=== PATIENT | male | born 1975 | race Caucasian/White ===

== ENCOUNTER 2016-07-27 13:36 | Emergency (ER) | payer OTHER ==
[2016-07-27 14:02] VITALS: BP 148/115; PULSE 85; RESP 18; TEMP 98.1; O2SAT 95
--- NOTE | 2016-07-27 15:01 | EDPHY ---
H & P Time Seen by Provider: 07/27/16 14:58 HPI/ROS: HPI: 41-year-old gentleman presents to emergency department with chief concern left lower tooth pain. Tooth been hurting him for months. Pain is 6/10. Pain onset after he cracked his tooth. Denies fever, chills, myalgias, dizziness, headache, discharge from his mouth, difficulty chewing or swallowing, nausea vomiting. He is from [place]. He is transient. Past medical history includes kidney stones and schizophrenia. ROS:10 point review of systems is negative other than as stated in HPI Social History: Transient Smoking Status: Current some day smoker Physical Exam: Vital signs stable, reviewed by me General: Awake, alert, calm, cooperative. No acute distress. Head: Normalocephalic. Atraumatic. EENT: PERRLA. EOMI. No pallor or injection. Anicteric. No nystagmus. Mouth: Left lower 3rd molar, tooth 17., avulsed with necrosis. No induration or fluctuance. No discharge present. No submandibular or submental lymphadenopathy. Neck: Supple, nontender. No AC lymphadenopathy. Full range of motion. Respiratory: Breathing unlabored. Breath sounds equal bilaterally and clear to auscultation. No adventitious sounds. Neuro: Alert. Oriented x 3. Speech clear. Sensation intact all extremities. Strength 5+ all extremities. Follows commands. Skin: Skin warm, dry, intact. No rashes, abrasions, or lacerations. Skin turgor normal. Extremities: Full range of motion in all 4 extremities. Mental status: Interactive, appropriate, disheveled. Constitutional: Initial Vital Signs Temperature (C) 36.7 C 07/27/16 14:00 Heart Rate 85 07/27/16 14:00 Respiratory Rate 18 07/27/16 14:00 Blood Pressure 148/115 H 07/27/16 14:00 O2 Sat (%) 95 07/27/16 14:00 O2 Delivery Mode Room Air Allergies/Adverse Reactions: nickel Allergy (Verified 07/27/16 14:03) Home Medications: Medication Instructions Recorded Amoxicillin/Clavulanate Pot 875 mg PO BID #14 tab 07/27/16 [Augmentin 875 MG TAB (*)] Hydrocodone/Acetaminophen [[place] 1 - 2 tab PO HS PRN #6 tab 07/27/16 5/325 (*)] Lipitor 07/27/16 Lisinopril 07/27/16 Medical Decision Making ED Course/Re-evaluation: 41-year-old male presents to emergency department with left lower tooth pain that has been ongoing for many months. There is no evidence of abscess. Vitals are stable. He is afebrile. I have prescribed a course of Augmentin. I have referred him to a dental aide in [place]. He verbalizes understanding of this plan and agrees to follow up. Differential Diagnosis: Differential diagnosis includes but is not limited to dental caries, tooth infection, abscess Departure - Departure Disposition: Home, Routine, Self-Care Clinical Impression: Tooth pain Condition: Good Instructions: Toothache (ED) Additional Instructions: Plan: Augmentin antibiotic twice daily for 7 days as prescribed You may use 600 mg of ibuprofen every 6 hours for fever, inflammation, or pain. Always take ibuprofen with food and stay well hydrated while taking. Do not exceed the maximum allowable dose in a 24 hour period which is 2400 mg. For more severe pain 1-2 Melvin at bedtime for the next 2 days--Never drink or drive while taking this medication. This medication impairs decision making capacity so do not work or sign important documents while taking. This medication its constipating so drink plenty of fluids and consider an over-the- counter stool softener such as docusate sodium (Colace) while taking this medication. This medication has addictive properties. You should use the least amount for the shortest amount of time. [facility] ED and Urgent [facility] do not refill narcotic pain medication prescriptions. This is a hospital policy. You will need to follow up as indicated for recheck for further narcotic refills. Call dental aide at [phone] and request a emergency room follow-up appointment Referrals: DONNIE JONES [Other] - As per Instructions Prescriptions: Amoxicillin/Clavulanate Pot [Augmentin 875 MG TAB (*)] 875 mg PO BID #14 tab Hydrocodone/Acetaminophen [[place] 5/325 (*)] 1 - 2 tab PO HS PRN #6 tab PRN Reason: Pain, Moderate
== END 2016-07-27 15:13 | disposition home or self-care (01) ==
DX: K08.89 Other specified disorders of teeth and supporting structures (principal); F17.200 Nicotine dependence, unspecified, uncomplicated

== ENCOUNTER 2017-10-25 11:22 | Emergency (ER) | payer SELFPAY ==
[2017-10-25] MEDS ORDERED: NS 1,000 ML IV ONE (11:32)
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
[2017-10-25 11:46] LABS: PLATELET COUNT 163 10^3/uL (150-400)
[2017-10-25] MEDS ORDERED: IOPAMIDOL (ISOVUE 370) 100 ML BTL IV ONE (11:49)
[2017-10-25 11:56] LABS: INR 0.99 (0.83-1.16); PROTIME(PATIENT) 13.3 SEC (12.0-15.0)
--- NOTE | 2017-10-25 12:20 | CPEKG ---
Heart Rate: 63 RR Interval: 952 P-R Interval: 136 QRSD Interval: 90 QT Interval: 404 QTC Interval: 414 P [place]: 9 QRS [place]: -18 T Wave [place]: 79 EKG Severity - BORDERLINE ECG - EKG Impression: SINUS RHYTHM EKG Impression: BORDERLINE LEFT AXIS DEVIATION EKG Impression: BORDERLINE T ABNORMALITIES, LATERAL LEADS Electronically Signed By: Bulmaro Beatty 25-Oct-2017 12:47:05
[2017-10-25 13:39] VITALS: BP 206/131
== END 2017-10-25 13:39 | disposition home or self-care (01) ==
LOC: EDUNIT#
DX: G62.9 Polyneuropathy, unspecified (principal); E86.9 Volume depletion, unspecified; I10 Essential (primary) hypertension; F17.200 Nicotine dependence, unspecified, uncomplicated
CPT/HCPCS: 82435-PO; 82565-PO; 82947-PO; 84132-PO; 84295-PO; 84484-PO; 84520-PO; 85014-PO; Q9967